=== PATIENT | female | born 1960 | race Caucasian/White ===

== ENCOUNTER 2018-06-18 12:50 | Emergency (ER) | payer OTHER ==
[2018-06-18] MEDS ORDERED: Ketorolac 60 MG/2 ML SDV IM ONE (14:54)
[2018-06-18] MEDS ORDERED: Acetaminophen/oxyCODONE 325-5 MG Tab PO ONE (14:55)
--- NOTE | 2018-06-18 14:56 | EDM.PDOC ---
ED HPI GENERAL MEDICAL PROBLEM - General Chief Complaint: Lower Extremity Injury/Pain Stated Complaint: FELL ON RIGHT KNEE AND HIP ABOUT 10 DAYS AGO ALIC[facility] Time Seen by Provider: 06/18/18 14:55 Source of Information: Reports: Patient History Limitations: Reports: No Limitations - History of Present Illness INITIAL COMMENTS - FREE TEXT/NARRATIVE: pt arrived with increased pain in her rt knee and her rt hip. She did fall about 10 days ago. She has a known history of a degenerative hip which will probably require surgery. She has an appt with ortho in [place] on June 28. Onset: Gradual, Other (pt fell 10 days ago. ) Duration: Hour(s):, Getting Worse Location: Reports: Lower Extremity, Right - Related Data Allergies Allergy/AdvReac Type Severity Reaction Status Date / Time No Known Allergies Allergy Verified 01/24/13 13:41 Home Meds: Home Meds Acetaminophen [Tylenol] 650 mg PO 06/18/18 [History] FLUoxetine [PROzac] 20 mg PO DAILY 06/18/18 [History] Hydrochlorothiazide [Microzide] 25 mg PO DAILY 06/18/18 [History] Levothyroxine [Synthroid] 100 mcg PO DAILY 06/18/18 [History] Omeprazole 20 mg PO 06/18/18 [History] Past Medical History Musculoskeletal History: Reports: Other (See Below) Other Musculoskeletal History: hx Gabriela knee replaced [address] Gabriela guillen hx steriod shot next ortho appiontment 06/28/18 in [place] Psychiatric History: Reports: Depression Social & Family History - Caffeine Use Caffeine Use: Reports: None - Alcohol Use Days Per Week of Alcohol Use: 7 Number of Drinks Per Day: 3 Total Drinks Per Week: 21 - Recreational Drug Use Recreational Drug Use: Yes Recreational Drug Type: Reports: Marijuana/Hashish Review of Systems - Review of Systems Review Of Systems: See Below Constitutional: Reports: No Symptoms Eyes: Reports: No Symptoms Ears: Reports: No Symptoms Nose: Reports: No Symptoms Mouth/Throat: Reports: No Symptoms Respiratory: Reports: No Symptoms Cardiovascular: Reports: No Symptoms GI/Abdominal: Reports: No Symptoms Genitourinary: Reports: No Symptoms Musculoskeletal: Reports: Joint Pain Neurological: Reports: No Symptoms ED EXAM, GENERAL - Physical Exam Exam: See Below Free Text/Narrative:: pt arrived with pain in the rt knee and in the rt hip. She did fall 10 days ago and she has had alot of pain. Exam Limited By: No Limitations General Appearance: Alert, Anxious, Moderate Distress Ears: Normal TMs Nose: Normal Inspection Throat/Mouth: Normal Inspection Head: Atraumatic Neck: Normal Inspection Respiratory/Chest: No Respiratory Distress Cardiovascular: Regular Rate, Rhythm Extremities: Other ( rt hip is very tender and painful with movement. Her rt knee is bruised. She has had previous total joint. ) Psychiatric: Depressed Mood Course - Vital Signs Last Recorded V/S: Last Vital Signs Temp 36 C 06/18/18 13:09 Pulse 79 06/18/18 13:09 Resp 18 06/18/18 13:09 BP 157/95 H 06/18/18 13:09 Pulse Ox - Orders/Labs/Meds Meds: Medications Discontinued Medications Generic Name Dose Route Start Last Admin Trade Name Jazmyn PRN Reason Stop Dose Admin Ketorolac Tromethamine 60 mg 06/18/18 14:54 06/18/18 15:17 Toradol IM 06/18/18 14:55 60 mg ONETIME ONE Administration Oxycodone/Acetaminophen 1 tab 06/18/18 14:55 06/18/18 15:17 Percocet 325-5 Mg PO 06/18/18 14:56 1 tab ONETIME ONE Administration - Re-Assessments/Exams Free Text/Narrative Re-Assessment/Exam: 06/18/18 16:03 xrays of the hip and knee did not reveal any fractures. The total knee looks intact. The hip shows severe degenerative changes. Departure - Departure Time of Disposition: 15:53 Disposition: Home, Self-Care 01 Condition: Fair Clinical Impression: Contusion of right knee, Contusion of right hip - Discharge Information Referrals: PCP,None [Primary Care Provider] - Forms: ED Department Discharge Care Plan Goals: change work duties to lite duty, off of her feet as much as possible, keep appt with ortho in [place] June 28. Put xrays on disk. , torodol 10mg tid with food, percocet 5/325 bid as needed for severe pain #12.
--- NOTE | 2018-06-18 15:35 | CRLCR ---
INDICATION: Trauma. Patient fell. TECHNIQUE: AP pelvis and 2 view right hip. COMPARISON: none FINDINGS: There is deformity of the right femoral head. Femoral head is flattened and shows lateral subluxation. There is reactive sclerosis within the flattened femoral head and adjacent acetabulum. Findings would indicate a sequela of childhood congenital hip dysplasia. No acute fracture line is identified. The contralateral left hip shows circumferential joint space narrowing, sclerosis and hypertrophic spurring consistent with osteoarthritic change. Again there is no evidence of a fracture. The sacroiliac joints, iliac wings and pubic rami appear normal. The soft tissues appear normal. IMPRESSION: No acute fracture identified. Arthritic changes present within both hips. There is deformity of the right hip suggesting a sequela of congenital hip dysplasia. Dictated by Jose J Rios MD @ 06/18/2018 3:34:43 PM Dictated by: Jose J Rios MD @ 06/18/2018 15:35:05 (Electronically Signed)
--- NOTE | 2018-06-18 15:53 | CRLCR ---
INDICATION: Fall TECHNIQUE: Three views right knee COMPARISON: 09/17/2013 FINDINGS: Bones: Alignment is normal. No fractures or bone lesions. Joint spaces: Total right knee arthroplasty.. Soft tissues: Unremarkable. IMPRESSION: No evidence of acute trauma. Dictated by Darian Nam MD @ 06/18/2018 3:52:10 PM Dictated by: Darian Nam MD @ 06/18/2018 15:52:16 (Electronically Signed)
== END 2018-06-18 16:16 | disposition home or self-care (01) ==
LOC: JP.ED 12:50
DX: S80.01XA Contusion of right knee, initial encounter (principal); S70.01XA Contusion of right hip, initial encounter; F32.9 Major depressive disorder, single episode, unspecified; Z79.899 Other long term (current) drug therapy; W18.30XA Fall on same level, unspecified, initial encounter
CPT/HCPCS: 73502; 73562; 96372; 99283; A9270; J1885

== ENCOUNTER 2018-09-11 12:59 | Emergency (ER) | payer OTHER ==
--- NOTE | 2018-09-11 13:50 | EDM.PDOC ---
ED HPI GENERAL MEDICAL PROBLEM - General Chief Complaint: Lower Extremity Injury/Pain Stated Complaint: RT HIP PAIN Time Seen by Provider: 09/11/18 13:40 Source of Information: Reports: Patient, Family, RN Notes Reviewed History Limitations: Reports: No Limitations - History of Present Illness INITIAL COMMENTS - FREE TEXT/NARRATIVE: 57-year-old female presents emergency department today complaint of right hip pain, she is had a complicated history with this hip initially had hip replacement in early July 3 weeks following hip replacement she developed an infection with the hip, went back to surgery had scraping procedure done she states she's been doing well following the procedure but now last 24 hours has developed significant pain. No fevers no nausea vomiting shortness of breath chest pain right; hip Pain Score (Numeric/FACES): 9 - Related Data Allergies Allergy/AdvReac Type Severity Reaction Status Date / Time No Known Allergies Allergy Verified 09/11/18 13:24 Home Meds: Home Meds Acetaminophen [Tylenol] 650 mg PO Q4H 06/18/18 [History] FLUoxetine [PROzac] 20 mg PO DAILY 06/18/18 [History] Levothyroxine [Synthroid] 100 mcg PO DAILY 06/18/18 [History] Omeprazole 20 mg PO DAILY 06/18/18 [History] Hydrocodone/Acetaminophen [Hydrocodon-Acetaminophen 5-325] 1 - 2 tab PO Q6H PRN 09/11/18 [History] amLODIPine [Norvasc] 5 mg PO DAILY 09/11/18 [History] Past Medical History Cardiovascular History: Reports: Hypertension [employer] History: Reports: Musculoskeletal History: Reports: Other (See Below) Other Musculoskeletal History: hx R knee replaced [address] Ochoa hip hx steriod shot next ortho appiontment 06/28/18 in [place] Psychiatric History: Reports: Depression Endocrine/Metabolic History: Reports: Hypothyroidism - Past Surgical History Musculoskeletal Surgical History: Reports: Knee Replacement, Other (See Below) Other Musculoskeletal Surgeries/Procedures:: neck surgery Social & Family History - Tobacco Use Smoking Status *Q: Never Smoker - Caffeine Use Caffeine Use: Reports: None - Alcohol Use Days Per Week of Alcohol Use: 7 Number of Drinks Per Day: 3 Total Drinks Per Week: 21 - Recreational Drug Use Recreational Drug Use: Yes Recreational Drug Type: Reports: Marijuana/Hashish Recreational Drug Use Frequency: Weekly Review of Systems - Review of Systems Review Of Systems: See Below Constitutional: Reports: No Symptoms Respiratory: Reports: No Symptoms Cardiovascular: Reports: No Symptoms GI/Abdominal: Reports: No Symptoms Musculoskeletal: Reports: Joint Pain (right hip) ED EXAM, GENERAL - Physical Exam Exam: See Below Free Text/Narrative:: Examination of the right hip surgical wound is clean dry and intact healing well , she has pain with both flexion and extension as well as internal and external rotation no pain to palpation Exam Limited By: No Limitations General Appearance: Alert, WD/WN, No Apparent Distress Course - Vital Signs Last Recorded V/S: Last Vital Signs Temp 96.1 F 09/11/18 13:27 Pulse 83 09/11/18 14:44 Resp 15 09/11/18 14:44 BP 164/102 H 09/11/18 14:44 Pulse Ox 95 09/11/18 14:44 - Orders/Labs/Meds Orders: Active Orders 24 hr Category Date Time Status Vital Signs [RC] Q1H Care 09/11/18 13:45 Active CULTURE BLOOD [BC] Urgent Lab 09/11/18 13:55 Received CULTURE BLOOD [BC] Urgent Lab 09/11/18 14:00 Received UA W/MICROSCOPIC [URIN] Urgent Lab 09/11/18 13:49 Ordered Blood Culture x2 Reflex Set [OM.PC] Urgent Oth 09/11/18 13:45 Ordered Labs: Laboratory Tests 09/11/18 09/11/18 09/11/18 Range/Units 14:00 14:00 14:00 WBC 8.6 (4.5-11.0) K/uL RBC 4.03 (3.30-5.50) M/uL Hgb 11.4 L (12.0-15.0) g/dL Hct 36.9 (36.0-48.0) % MCV 92 (80-98) fL MCH 28 (27-31) pg MCHC 31 L (32-36) % Plt Count 395 (150-400) K/uL Neut % (Auto) 73 H (36-66) % Lymph % (Auto) 15 L (24-44) % [place] % (Auto) 10 H (2-6) % Eos % (Auto) 1 L (2-4) % Baso % (Auto) 1 (0-1) % ESR (0-25) mm/hr Sodium 136 L (140-148) mmol/L Potassium 4.1 (3.6-5.2) mmol/L Chloride 99 L (100-108) mmol/L Carbon Dioxide 30 (21-32) mmol/L Anion Gap 11.1 (5.0-14.0) mmol/L BUN 11 (7-18) mg/dL Creatinine 0.7 (0.6-1.0) mg/dL Est Cr Clr Drug Dosing 77.49 mL/min Estimated GFR (MDRD) > 60 (>60) Glucose 89 (74-106) mg/dL Lactic Acid 1.0 (0.4-2.0) mmol/L Calcium 9.4 (8.5-10.1) mg/dL Total Bilirubin 0.7 (0.2-1.0) mg/dL AST 11 L (15-37) U/L ALT 13 (12-78) U/L Alkaline Phosphatase 124 H (46-116) U/L C-Reactive Protein 16.69 H (0.0-0.3) mg/dL Total Protein 7.4 (6.4-8.2) g/dL Albumin 3.0 L (3.4-5.0) g/dL Globulin 4.4 H (2.3-3.5) g/dL Albumin/Globulin Ratio 0.7 L (1.2-2.2) Procalcitonin ng/mL 09/11/18 09/11/18 Range/Units 14:00 14:00 WBC (4.5-11.0) K/uL RBC (3.30-5.50) M/uL Hgb (12.0-15.0) g/dL Hct (36.0-48.0) % MCV (80-98) fL MCH (27-31) pg MCHC (32-36) % Plt Count (150-400) K/uL Neut % (Auto) (36-66) % Lymph % (Auto) (24-44) % [place] % (Auto) (2-6) % Eos % (Auto) (2-4) % Baso % (Auto) (0-1) % ESR 82 H (0-25) mm/hr Sodium (140-148) mmol/L Potassium (3.6-5.2) mmol/L Chloride (100-108) mmol/L Carbon Dioxide (21-32) mmol/L Anion Gap (5.0-14.0) mmol/L BUN (7-18) mg/dL Creatinine (0.6-1.0) mg/dL Est Cr Clr Drug Dosing mL/min Estimated GFR (MDRD) (>60) Glucose (74-106) mg/dL Lactic Acid (0.4-2.0) mmol/L Calcium (8.5-10.1) mg/dL Total Bilirubin (0.2-1.0) mg/dL AST (15-37) U/L ALT (12-78) U/L Alkaline Phosphatase (46-116) U/L C-Reactive Protein (0.0-0.3) mg/dL Total Protein (6.4-8.2) g/dL Albumin (3.4-5.0) g/dL Globulin (2.3-3.5) g/dL Albumin/Globulin Ratio (1.2-2.2) Procalcitonin 13.38 H* ng/mL Meds: Medications Discontinued Medications Generic Name Dose Route Start Last Admin Trade Name Freq PRN Reason Stop Dose Admin Fentanyl 50 mcg 09/11/18 14:50 Sublimaze IM 09/11/18 14:51 ONETIME ONE Departure - Departure Time of Disposition: 15:08 Disposition: DC/Tfer to Acute Hospital 02 Condition: Fair Clinical Impression: Right hip pain - Discharge Information Referrals: PCP,None [Primary Care Provider] - Forms: ED Department Discharge Additional Instructions: Do not eat anything or drink anything, please report to the [facility] admissions office for a direct admission and further evaluation by orthopedic surgery - My Orders Last 24 Hours: My Active Orders 09/11/18 13:45 Vital Signs [RC] Q1H Blood Culture x2 Reflex Set [OM.PC] Urgent 09/11/18 13:49 UA W/MICROSCOPIC [URIN] Urgent 09/11/18 13:55 CULTURE BLOOD [BC] Urgent 09/11/18 14:00 CULTURE BLOOD [BC] Urgent - Assessment/Plan Last 24 Hours: My Active Orders 09/11/18 13:45 Vital Signs [RC] Q1H Blood Culture x2 Reflex Set [OM.PC] Urgent 09/11/18 13:49 UA W/MICROSCOPIC [URIN] Urgent 09/11/18 13:55 CULTURE BLOOD [BC] Urgent 09/11/18 14:00 CULTURE BLOOD [BC] Urgent Plan: Assessment Acuity = acute Site and laterality = right hip pain Etiology = concern for intra-articular infection Manifestations = none Location of injury = Home Lab values = CBC unremarkable CMP unremarkable however CRP is elevated at 17 and pro calcitonin elevated 13.4 lactic acid normal 1.0 x-ray shows no sign of infection Plan Called discussed case Dr. Frey orthopedic surgeon [facility] at 1500, kindly accepted the patient patient will be transported via private vehicle for direct admission and further workup of the possibility of septic joint This note was dictated using [employer] voice recognition software please call with any questions on syntax or grammar.
--- NOTE | 2018-09-11 14:43 | CRLCR ---
Indication: Right hip arthroplasty with pain Technique: Right hip 3 view Comparison : None. Findings: Hardware from a right hip arthroplasty is in satisfactory position without evidence of loosening or infection. Bone alignment is normal. No fracture. Soft tissues are unremarkable. No specific finding to explain pain. Dictated by Jose Angel MD @ 09/11/2018 2:42:48 PM Dictated by: Jose Angel MD @ 09/11/2018 14:42:54 (Electronically Signed)
[2018-09-11] MEDS ORDERED: fentaNYL 100 MCG/2 ML SDV IM ONE (14:50)
== END 2018-09-11 15:50 ==
LOC: JP.ED 12:59
DX: M25.551 Pain in right hip (principal); I10 Essential (primary) hypertension; E03.9 Hypothyroidism, unspecified; F32.9 Major depressive disorder, single episode, unspecified; Z79.899 Other long term (current) drug therapy
CPT/HCPCS: 36415; 73502; 80053; 83605; 84145; 85025; 85651; 86140; 87040; 96372; 99284; J3010

== ENCOUNTER 2021-03-25 07:27 | Day surgery (SDC) | payer OTHER ==
[2021-03-25] MEDS ORDERED: fentaNYL 100 MCG/2 ML SDV ONE (08:03)
[2021-03-25] MEDS ORDERED: Propofol 200 MG/20 ML SDV ONE (08:03)
[2021-03-25] MEDS ORDERED: Midazolam 1 MG/ML 2 ML SDV ONE (08:03)
[2021-03-25] MEDS ORDERED: Sodium Chloride 0.9% 1,000 ML IV SCH (08:15)
[2021-03-25 08:45] LABS: CORONAVIRUS COVID-19 NAA NEGATIVE (NEGATIVE)
== END 2021-03-25 10:25 | disposition home or self-care (01) ==
LOC: JP.SDS 07:27
PROVIDERS: ATTEND Surgery
DX: Z12.11 Encounter for screening for malignant neoplasm of colon (principal); D12.2 Benign neoplasm of ascending colon; I10 Essential (primary) hypertension; K21.9 Gastro-esophageal reflux disease without esophagitis; E03.9 Hypothyroidism, unspecified; Z01.812 Encounter for preprocedural laboratory examination; Z20.822 Contact with and (suspected) exposure to COVID-19
CPT/HCPCS: 0241U; 45380; J2250; J2704; J3010; J7030

== ENCOUNTER 2024-04-17 15:07 | Emergency (ER) | payer MEDICAID ==
[2024-04-17] MEDS ORDERED: Sodium Chloride 0.9% 10 ML Syringe FLUSH PRN (16:16)
[2024-04-17 16:26] LABS: BASOPHILS ABSOLUTE AUTO 0.09 K/uL (0.00-0.10); BASOPHILS PERCENT AUTO 1.2 % (0.1-1.3); EOSINOPHILS ABSOLUTE AUTO 0.09 K/uL (0.00-0.40); EOSINOPHILS PERCENT AUTO 1.2 % (0.0-5.4); HEMATOCRIT 38.4 % (34.3-46.0); HEMOGLOBIN 13.5 g/dL (11.2-15.5); IMMATURE GRAN PERCENT AUTO 0.3 % (0.0-0.7); LYMPHOCYTES PERCENT AUTO 18.9 % (11.4-47.7); MEAN CORPUSCULAR HEMOGLOBIN 33.2 pg (31.6-35.5); MEAN CORPUSCULAR HGB CONC 35.2 g/dL (31.6-35.5); MEAN CORPUSCULAR VOLUME 94.3 fL (81.4-99.0); MONOCYTES ABSOLUTE AUTO 0.82 K/uL (0.20-0.90); MONOCYTES PERCENT AUTO 11.1 % (3.3-12.6); NEUTROPHILS ABSOLUTE AUTO 4.97 K/uL (1.0-7.6); NEUTROPHILS PERCENT AUTO 67.3 % (40.0-78.1); PLATELET COUNT,PLT 234 K/uL (130-375); RED BLOOD CELL COUNT 4.07 M/uL (3.77-5.24); WHITE BLOOD CELL COUNT,WBC 7.4 K/uL (3.2-11.0)
[2024-04-17 16:30] LABS: IMMATURE GRAN ABSOLUTE AUTO 0.02 K/uL (0.00-0.23)
[2024-04-17] MEDS: Sodium Chloride 0.9% 80 ML IV ONE (16:40)
[2024-04-17] MEDS: Iopamidol 612 MG/ML 100 ML Bottle IV ONE (16:40)
[2024-04-17 16:44] LABS: INR 1.4; PROTHROMBIN TIME 13.8 sec (9.2-10.6)
[2024-04-17 16:48] LABS: A/G RATIO 0.7 (1.2-2.2); ALANINE AMINOTRANSFERASE,ALT 29 U/L (12-78); ALBUMIN 2.8 g/dL (3.4-5.0); ALKALINE PHOSPHATASE 150 U/L (46-116); ASPARTATE AMNIOTRANSFERASE,AST 84 U/L (15-37); BILIRUBIN TOTAL 1.8 mg/dL (0.2-1.0); BLOOD UREA NITROGEN,BUN 5 mg/dL (7-18); CALCIUM 8.5 mg/dL (8.5-10.1); CARBON DIOXIDE,CO2 29 mmol/L (21-32); CHLORIDE,CL 95 mmol/L (100-108); EST CRCL DRUG DOSING (CG) 50.37 mL/min; ESTIMATED GFR 64 mL/min (>60); GLUCOSE RANDOM 124 mg/dL (74-106); POTASSIUM,K 3.3 mmol/L (3.6-5.2); PROTEIN TOTAL,TP 6.7 g/dL (6.4-8.2); SODIUM,NA 134 mmol/L (140-148)
[2024-04-17 16:49] LABS: ANION GAP 13.3 mmol/L (5.0-14.0)
[2024-04-17] MEDS: Sodium Chloride 0.9% 10 ML Syringe FLUSH ONE (18:11)
[2024-04-17] MEDS: Furosemide 40 MG/4 ML VIAL IVPUSH ONE (18:11)
== END 2024-04-17 18:23 | disposition home or self-care (01) ==
LOC: JP.ED 15:07
DX: R18.8 Other ascites (principal); I10 Essential (primary) hypertension; Z88.8 Allergy status to other drugs, medicaments and biological substances; Z79.890 Hormone replacement therapy; Z79.899 Other long term (current) drug therapy
CPT/HCPCS: 36415; 74177; 80053; 83605; 85025; 85610; 96374; 99284; J1940; Q9967

== ENCOUNTER 2024-05-22 16:46 | Emergency (ER) | payer MEDICAID ==
[2024-05-22 17:28] LABS: BASOPHILS ABSOLUTE AUTO 0.05 K/uL (0.00-0.10); BASOPHILS PERCENT AUTO 0.7 % (0.1-1.3); HEMATOCRIT 31.8 % (34.3-46.0); HEMOGLOBIN 11.1 g/dL (11.2-15.5); IMMATURE GRAN PERCENT AUTO 0.3 % (0.0-0.7); LYMPHOCYTES ABSOLUTE AUTO 1.43 K/uL (0.8-3.3); LYMPHOCYTES PERCENT AUTO 21.2 % (11.4-47.7); MEAN CORPUSCULAR HEMOGLOBIN 32.3 pg (31.6-35.5); MEAN CORPUSCULAR HGB CONC 34.9 g/dL (31.6-35.5); MEAN CORPUSCULAR VOLUME 92.4 fL (81.4-99.0); MONOCYTES ABSOLUTE AUTO 0.77 K/uL (0.20-0.90); MONOCYTES PERCENT AUTO 11.4 % (3.3-12.6); NEUTROPHILS ABSOLUTE AUTO 4.29 K/uL (1.0-7.6); NEUTROPHILS PERCENT AUTO 63.4 % (40.0-78.1); PLATELET COUNT,PLT 254 K/uL (130-375); RED BLOOD CELL COUNT 3.44 M/uL (3.77-5.24); WHITE BLOOD CELL COUNT,WBC 6.8 K/uL (3.2-11.0)
[2024-05-22 17:29] LABS: IMMATURE GRAN ABSOLUTE AUTO 0.02 K/uL (0.00-0.23)
[2024-05-22 17:45] LABS: INR 1.1; PROTHROMBIN TIME 11.6 sec (9.2-10.6)
[2024-05-22 17:49] LABS: A/G RATIO 0.8 (1.2-2.2); ALANINE AMINOTRANSFERASE,ALT 26 U/L (12-78); ALBUMIN 2.7 g/dL (3.4-5.0); ALKALINE PHOSPHATASE 122 U/L (46-116); ASPARTATE AMNIOTRANSFERASE,AST 62 U/L (15-37); BILIRUBIN TOTAL 0.9 mg/dL (0.2-1.0); BLOOD UREA NITROGEN,BUN 21 mg/dL (7-18); CALCIUM 8.8 mg/dL (8.5-10.1); CARBON DIOXIDE,CO2 25 mmol/L (21-32); CHLORIDE,CL 95 mmol/L (100-108); CREATININE 1.1 mg/dL (0.6-1.0); EST CRCL DRUG DOSING (CG) 45.79 mL/min; ESTIMATED GFR 57 mL/min (>60); GLUCOSE RANDOM 97 mg/dL (74-106); POTASSIUM,K 4.8 mmol/L (3.6-5.2); SODIUM,NA 127 mmol/L (140-148)
[2024-05-22 17:50] LABS: ANION GAP 11.8 mmol/L (5.0-14.0)
== END 2024-05-22 18:08 | disposition home or self-care (01) ==
LOC: JP.ED 16:46
DX: E87.1 Hypo-osmolality and hyponatremia (principal); I10 Essential (primary) hypertension; E03.9 Hypothyroidism, unspecified; Z88.1 Allergy status to other antibiotic agents; Z88.8 Allergy status to other drugs, medicaments and biological substances; Z79.01 Long term (current) use of anticoagulants; Z79.890 Hormone replacement therapy; Z79.899 Other long term (current) drug therapy
CPT/HCPCS: 36415; 80053; 80307; 85025; 85610; 99283